=== PATIENT | female | born 1965 | race Caucasian/White ===

== ENCOUNTER 2018-07-19 18:40 | Emergency (ER) | payer OTHER ==
[2018-07-19 18:48] VITALS: BMI 28.3
--- NOTE | 2018-07-19 19:37 | PDOC ---
Attending Attestation - HPI HPI: 07/19/18 20:12 The patient is a 52 year old female with an unknown medical history, who presents to the emergency department today demonstrating an altered mental status. The patient originally came in as a Lexii Renae, but eventually gave us a name, Alanna Key without providing spelling. The patient does not respond to conversations and is making jerking movements, however is able to ambulate to the bathroom. Patient states she made breakfast for 21 people and saw the devil. Patient does not have any identifying factor on her. It is unknown how the patient came to the ER as she was found on the floor by the front end software engineer of the ER. She denies any complaints. <Lou Schroeder - Last Filed: 07/19/18 20:12> - Resident Resident Name: Ulices Mandujano - ED Attending Attestation I have performed the following: I have examined & evaluated the patient, The case was reviewed & discussed with the resident, I agree w/resident's findings & plan, Exceptions are as noted - Physicial Exam PE: 07/19/18 22:17 Alert, oriented to person, place, time NCAT, PERRL, EOMI Neck supple LCTAB Abd soft, nt, nd NFD,SANTIAGO - Medical Decision Making 07/19/18 22:17 Patient found outside by staff, non-verbal, refusing to give history. During clinical course patient began speaking but with bizarre content. F/u chung for ams, tox, metabolic, consider cva, seizure, primary psych dispo per clinical course 07/20/18 00:22 tox screen positive for amphetamine, consider stimulant psychosis 07/20/18 03:20 Patient continues to be agitated and bizarre, ran past 1 to 1 weeping. denies SI/HI, AVH Pt required medication for her own and staff safety Re-eval 07/20/18 06:39 Spoke to son and daughter who were at patient's bedside. Per family patient is not acting recognizably, they deny any psych hx and are unaware of any substance abuse history laurel grossman(daughter) [phone] sophia oliva (son) [phone] pending evaluation by psych <Ulices Mandujano - Last Filed: 07/20/18 07:18> Attestations - Attestations 07/19/18 20:13 Documentation prepared by Lou Schroeder, acting as director biomedical engineering for Ulices Mandujano MD. <Lou Schroeder - Last Filed: 07/19/18 20:12>
--- NOTE | 2018-07-19 20:07 | PDOC ---
History of Present Illness - General Chief Complaint: Altered Mental Status Stated Complaint: UNRESPONSIVE Time Seen by Provider: 07/19/18 19:09 History Source: Patient Exam Limitations: Clinical Condition - History of Present Illness Initial Comments: 07/19/18 20:02 Patient is a 52F with unknown medical history here today unresponsive. The patient has been muttering in thai about the devil and making breakfast for 21 people. She is able to talk and states that her name is "Alanna Key", but does not spell her name. Patient answers no question to why she is here, and makes repeated jerking movements that are not consistent with a seizure. Patient is appropriately dressed, with a new-appearing winter coat. No ID or phone found in her personal belongings. Past History - Past Medical History Allergies/Adverse Reactions: Allergies Allergy/AdvReac Type Severity Reaction Status Date / Time No Allergy Information Allergy Verified 07/19/18 18:48 Available Home Medications: Ambulatory Orders Unobtainable 07/20/18 COPD: No - Suicide/Smoking/Psychosocial Hx Smoking History: Unknown if ever smoked Have you smoked in the past 12 months: No Information on smoking cessation initiated: No Review of Systems - Review of Systems Able to Perform ROS?: No (2/2 clinical condition) *Physical Exam - Vital Signs Last Vital Signs Temp Pulse Resp BP Pulse Ox 98.2 F 97 H 16 140/91 100 07/19/18 18:45 07/19/18 18:45 07/19/18 18:45 07/19/18 18:45 07/19/18 18:45 - Physical Exam Comments: 07/19/18 20:04 GENERAL: Awake, alert, in no acute distress HEAD: No signs of trauma, normocephalic, atraumatic EYES: PERRLA, EOMI, sclera anicteric, conjunctiva clear ENT: Auricles normal inspection, hearing grossly normal, nares patent, oropharynx clear without exudates. Moist mucosa NECK: Normal ROM, supple, no lymphadenopathy, JVD, or masses LUNGS: No distress, speaks full sentences, clear to auscultation bilaterally HEART: Regular rate and rhythm, normal S1 and S2, no murmurs, rubs or gallops, peripheral pulses normal and equal bilaterally. ABDOMEN: Soft, nontender, normoactive bowel sounds. No guarding, no rebound. No masses EXTREMITIES: Normal inspection, Normal range of motion, no edema. No clubbing or cyanosis. NEUROLOGICAL: Cranial nerves II through XII grossly intact. Normal speech, normal gait, no focal sensorimotor deficits SKIN: Warm, Dry, normal turgor, no rashes or lesions noted. Moderate Sedation - Procedure Monitoring Vital Signs: Procedure Monitoring Vital Signs Temperature 98.2 F 07/19/18 18:45 Pulse Rate 97 H 07/19/18 18:45 Respiratory Rate 16 07/19/18 18:45 Blood Pressure 140/91 07/19/18 18:45 O2 Sat by Pulse Oximetry (%) 100 07/19/18 18:45 ED Treatment Course - LABORATORY CBC & Chemistry Diagram: 07/19/18 20:00 07/19/18 20:40 - RADIOLOGY Radiology Studies Ordered: Category Date Time Status HEAD CT WITH CONTRAST [CT] Stat CT Scan 07/19/18 19:21 Ordered CHEST X-RAY PORTABLE* [RAD] Stat Radiology 07/19/18 19:21 Ordered Medical Decision Making - Medical Decision Making 07/19/18 20:07 Patient is 52F here today with AMS. Vitals normal and stable. Patient has occasional jerking movements, but not consistent with seizure activity and normal LOC. Believe patient most likely has primary psych issue, but will evaluate for metabolic, infections and structural causes of AMS. Psych paged. 07/20/18 00:10 CBC normal. CMP normal. Utox positive for amphetamines. Etoh/salicylates/ tylenol negative. Patient continues to be evasive about name. Is neurologically intact. CT head normal. 07/20/18 00:19 Patient reassessed. Now not speaking. Fluttering eyes in response to questioning , no seizure activity. 07/20/18 01:17 Son and daughter at bedside. They state that the patient is HIV positive for the past ~20 years getting treatment. They state she was getting some sort of other treatment that they are not aware of that was ending soon. Deny any history of drug or psych history. Both say that it's likely she has been here before, sent to registration to attempt to find prior records. Patient evaded security and 1:1, running down hallway to bathroom, where she laid down on the floor. Recovered, placed back in bed. Given 5 haldol 2 ativan and placed on monitor. Will continue to observe. 07/20/18 04:28 Reassessed. Vitals normal. Arousable and awake. Refusing to talk. *DC/Admit/Observation/Transfer Diagnosis at time of Disposition: Altered mental status - Discharge Dispostion Condition at time of disposition: Stable - Referrals - Patient Instructions - Post Discharge Activity
[2018-07-19 20:11] LABS: BASO % 0.9 % (0-2.0); EOS % 0.6 % (0-4.5); HEMATOCRIT 38.6 % (32.4-45.2); HEMOGLOBIN 12.8 GM/dL (10.7-15.3); LYMPH % 29.3 % (8-40); MCH 27.3 pg (25.7-33.7); MCHC 33.1 g/dl (32.0-36.0); MEAN CELL VOLUME 82.2 fl (80-96); MEAN PLT VOLUME 8.8 fl (7.5-11.1); MONO % 12.4 % (3.8-10.2); NEUT % 56.8 % (42.8-82.8); PLATELET COUNT 248 K/MM3 (134-434); RDW 15.4 % (11.6-15.6); WHITE BLOOD COUNT 6.6 K/mm3 (4.0-10.0)
[2018-07-19 20:47] LABS: URINE APPEARANCE SLCLOUDY; URINE BILIRUBIN NEGATIVE (<2.0 mg/dL); URINE COLOR YELLOW; URINE GLUCOSE (UA) NEGATIVE (NEGATIVE); URINE KETONE TRACE (NEGATIVE); URINE LEUK ESTERASE NEGATIVE (NEGATIVE); URINE NITRITE NEGATIVE (NEGATIVE); URINE PROTEIN NEGATIVE (NEGATIVE); URINE UROBILINOGEN NEGATIVE mg/dL (0.2-1.0)
[2018-07-19 21:53] LABS: ALBUMIN 3.7 g/dl (3.4-5.0); ALK PHOS 74 U/L (45-117); ANION GAP 8 MMOL/L (8-16); BILIRUBIN,TOTAL 0.2 mg/dL (0.2-1); BLOOD UREA NITROGEN 10 mg/dL (7-18); CALCIUM 9.3 mg/dL (8.5-10.1); CHLORIDE 110 mmol/L (98-107); CO2 27 mmol/L (21-32); CREATININE 0.6 mg/dL (0.55-1.3); GLUCOSE,RANDOM 103 mg/dL (74-106); POTASSIUM 3.9 mmol/L (3.5-5.1); SGOT/AST 30 U/L (15-37); SGPT/ALT 26 U/L (13-61); SODIUM 145 mmol/L (136-145); TOT PROT 7.2 g/dl (6.4-8.2)
[2018-07-19 21:55] LABS: COCAINE, UR NEGATIVE ng/ml (CUTOFF=300); METHADONE, UR NEGATIVE ng/ml (CUTOFF=300); OPIATES, URI NEGATIVE ng/ml (CUTOFF=300); PHENCYCLIDINE,URINE NEGATIVE ng/ml (CUTOFF=25); URINE BARBITURATES NEGATIVE ng/ml (CUTOFF=200); URINE BENZODIAZEPINES NEGATIVE ng/ml (CUTOFF=200)
[2018-07-19 22:01] LABS: URINE AMPHETAMINES POSITIVE ng/ml (CUTOFF=500)
[2018-07-20] MEDS ORDERED: HALOPERIDOL LACTATE 5 MG/ML IVPUSH ONE (01:25)
[2018-07-20] MEDS ORDERED: LORazepam 2 MG/ML SDV VIAL ONE (01:31)
[2018-07-20] MEDS ORDERED: HALOPERIDOL LACTATE 5 MG/ML ONE (01:31)
--- NOTE | 2018-07-20 07:05 | PDOC ---
*Physical Exam - Vital Signs Last Vital Signs Temp Pulse Resp BP Pulse Ox 98.2 F 85 18 92/61 100 07/19/18 18:45 07/20/18 05:00 07/20/18 05:00 07/20/18 05:00 07/20/18 05:00 ED Treatment Course - LABORATORY CBC & Chemistry Diagram: 07/19/18 20:00 07/19/18 20:40 - ADDITIONAL ORDERS Additional order review: Laboratory Results 07/19/18 07/19/18 07/19/18 20:40 20:24 20:24 Sodium 145 Potassium 3.9 Chloride 110 H Carbon Dioxide 27 Anion Gap 8 BUN 10 Creatinine 0.6 Creat Clearance w eGFR > 60 Random Glucose 103 Calcium 9.3 Total Bilirubin 0.2 AST 30 ALT 26 Alkaline Phosphatase 74 Total Protein 7.2 Albumin 3.7 Serum , Qual Urine Color Yellow Urine Appearance Slcloudy Urine pH 5.0 Ur Specific Pryor 1.025 Urine Protein Negative Urine Glucose (UA) Negative Urine Ketones Trace H Urine Blood Negative Urine Nitrite Negative Urine Bilirubin Negative Urine Urobilinogen Negative Ur Leukocyte Esterase Negative Salicylates < 1.7 L Opiates Screen Negative Methadone Screen Negative Acetaminophen < 2.0 L Barbiturate Screen Negative Phencyclidine Screen Negative Ur Amphetamines Screen Positive A* MDMA (Ecstasy) Screen Negative Benzodiazepines Screen Negative Cocaine Screen Negative U Marijuana (THC) Screen Negative Alcohol, Quantitative < 3.0 07/19/18 07/19/18 20:00 19:55 Sodium Cancelled Potassium Cancelled Chloride Cancelled Carbon Dioxide Cancelled Anion Gap Cancelled BUN Cancelled Creatinine Cancelled Creat Clearance w eGFR Cancelled Random Glucose Cancelled Calcium Cancelled Total Bilirubin Cancelled AST Cancelled ALT Cancelled Alkaline Phosphatase Cancelled Total Protein Cancelled Albumin Cancelled Serum , Qual Negative Urine Color Urine Appearance Urine pH Ur Specific Pryor Urine Protein Urine Glucose (UA) Urine Ketones Urine Blood Urine Nitrite Urine Bilirubin Urine Urobilinogen Ur Leukocyte Esterase Salicylates Cancelled Opiates Screen Methadone Screen Acetaminophen Cancelled Barbiturate Screen Phencyclidine Screen Ur Amphetamines Screen MDMA (Ecstasy) Screen Benzodiazepines Screen Cocaine Screen U Marijuana (THC) Screen Alcohol, Quantitative Cancelled 07/19/18 20:00 RBC 4.70 MCV 82.2 MCHC 33.1 RDW 15.4 MPV 8.8 Neutrophils % 56.8 Lymphocytes % 29.3 Monocytes % 12.4 H Eosinophils % 0.6 Basophils % 0.9 - Medications Given in the ED: ED Medications Discontinued Medications Generic Name Dose Route Start Last Admin Trade Name Denisse PRN Reason Stop Dose Admin Haloperidol 5 mg 07/20/18 01:25 07/20/18 01:45 Haldol Injection (Fast Acting) - IVPUSH 07/20/18 01:26 5 mg ONCE ONE Administration Lorazepam 2 mg 07/20/18 01:25 07/20/18 01:45 Ativan Injection - IVPUSH 07/20/18 01:26 2 mg ONCE ONE Administration Medical Decision Making - Medical Decision Making Patient pending Psychiatric evaluation. Dr. Montiel paged by night team to eval this AM 07/20/18 07:04 Patient laying comfortably in bed. Appears not to be agitated at this time 07/20/18 10:19 Patient to be transferred to [place] at 1530 for further psychiatric evaluation/admission 07/20/18 13:05 Dispo: patient transferred *DC/Admit/Observation/Transfer Diagnosis at time of Disposition: Altered mental status Qualifiers: Altered mental status type: unspecified Qualified Code(s): R41.82 - Altered mental status, unspecified - Discharge Dispostion Disposition: TRANSFER ACUTE CARE/OTHER HOSP Condition at time of disposition: Stable Decision to Admit order: No - Referrals - Patient Instructions - Post Discharge Activity
--- NOTE | 2018-07-20 10:06 | CON.PSY ---
Psychiatry Consult Chief Complaint: 52 year old female with a long Psych Illness walkeed to er from home, has been displaying acute agitaion and paranoid delusions. reports Malika is in her phone and she and her children will be killed, She [facility] a patient at [facility]. unable to recall wht meds she takes. Symptoms: reports: Hyper-religiosity, Delusions, Paranoia - Previous Psychiatric Treatment Outpatient: Less than 6 mos ago Inpatient: One prior admission - Reason for Previous Treatment Reason for Previous Treatment: Major Depression, Psychotic Episode - Allergies Allergies: Allergies Allergy/AdvReac Type Severity Reaction Status Date / Time No Allergy Information Allergy Verified 07/19/18 18:48 Available - Current Living Status Usual Living Arrangement: Alone - Current Mental Status Evaluation Appearance: Disheveled Attitude: Guarded, Suspicious - Affect Affect: Constrictive Appropriateness: Not Appropriate - Mood Mood: Anxious - Speech/Language Expressive: Delayed - Psychomotor Activity Psychomotor Activity: Hyperactive - Thought Process Thought Process: Circumstantial - Thought Content Hallucinations: Absent Delusions: Present Type: Persectory - Self Perception Self Perception: No Impairment - Cognition Attention: Alert Orientation: Time Memory, Immediate Recall: Intact Memory, Short Term: 2/3 Memory, Remote with Promptin/3 - Concentration Serial Sevens Intact: No Simple Calculations Intact: Yes - Abstraction Proverb Interpretation: Impaired Judgement: Minimally Impaired - Insight Insight: Impaired - Impulse Control Impulse Control: Moderately Impaired - Suicidal Ideation Suicidal Ideation: No - Homicidal Ideation Homicidal Ideation: No Assessment/Plan 1) Needs In patient Psych Admission for acute Psychotic relapse. 2) Call [facility] and speak to gloria Carrillo who has been her Psychiatrist for the past 10 yrs.
--- NOTE | 2018-07-20 11:57 | EKG ---
Test Reason : Blood Pressure : / mmHG Vent. Rate : 098 BPM Atrial Rate : 098 BPM P-R Int : 136 ms QRS Dur : 084 ms QT Int : 368 ms P-R-T Axes : 052 043 018 degrees QTc Int : 469 ms SINUS RHYTHM WITH OCCASIONAL PREMATURE VENTRICULAR COMPLEXES OTHERWISE NORMAL ECG NO PREVIOUS ECGS AVAILABLE Confirmed by SKYLER MEAD MD ([id number]) on 07/20/2018 11:57:08 AM Referred By: Confirmed By:SKYLER MEAD MD
[2018-07-20 16:35] VITALS: TEMP 98.4
[2018-07-20 17:15] VITALS: BP 101/68; PULSE 102
== END 2018-07-20 16:35 | disposition short-term general hospital (02) ==
LOC: JER 18:40
PROC: 3E033GC Introduction of Other Therapeutic Substance into Peripheral Vein, Percutaneous Approach (ICD-10-PCS; principal; 2018-07-19)
DX: Z21 Asymptomatic human immunodeficiency virus [HIV] infection status (principal); R41.82 Altered mental status, unspecified
CPT/HCPCS: 36415; 70450-TC; 71045-TC-FY; 80053; 80307; 81003; 84703; 85025; 93005; 93010; 99285-25